=== PATIENT | female | born 1990 | race Caucasian/White ===

== ENCOUNTER 2016-04-24 03:08 | Emergency (ER) | payer MEDICARE ==
--- NOTE | 2016-04-24 07:01 | ER Document Report ---
ED General - General Chief Complaint: Ankle Pain Stated Complaint: FOOT PAIN TRAVEL OUTSIDE OF THE [place] IN LAST 30 DAYS: No - HPI Patient complains to provider of: ankle pain foot pain Notes: Patient states approximately 48 hours ago she had an ankle injury rolling her ankle patient states yesterday 24 hours before coming and patient underwent a pedicure with exfoliation of her feet at the pedicure office. Patient now has swelling of the ankle and erythema of the dorsum of her foot. Denies fevers chills nausea vomiting difficulty in ambulating patient does state some mild pain with tingling. Denies any other history trauma. - Related Data Allergies/Adverse Reactions: acetaminophen Allergy (Verified 04/24/16 03:21) amoxicillin [From Augmentin] Allergy (Verified 04/24/16 03:21) clavulanic acid [From Augmentin] Allergy (Verified 04/24/16 03:21) codeine Allergy (Verified 04/24/16 03:21) ketorolac [From Toradol] Allergy (Verified 04/24/16 03:21) shellfish derived Allergy (Verified 04/24/16 03:21) Past Medical History - Social History Smoking Status: Current Some Day Smoker Chew tobacco use (# tins/day): No Frequency of alcohol use: Rare Drug Abuse: Marijuana Family History: Reviewed & Not Pertinent Patient has suicidal ideation: No Patient has homicidal ideation: No Renal/ Medical History: Denies: Hx Peritoneal Dialysis Past Surgical History: Reports: Hx Breast Surgery, Hx Nose Surgery, Hx Orthopedic Surgery, Hx Tonsillectomy - and adenoinoectomy - Immunizations Hx Diphtheria, Pertussis, Tetanus Vaccination: Yes Review of Systems - Review of Systems Musculoskeletal: Other - Ankle swelling foot pain erythema Physical Exam - Vital signs Vitals: Temp Pulse Resp BP Pulse Ox 97.7 F 90 18 130/60 H 98 04/24/16 03:16 04/24/16 03:16 04/24/16 03:16 04/24/16 03:16 04/24/16 03:16 Interpretation: Normal - General General appearance: Appears well, Alert - HEENT Head: Normocephalic, Atraumatic Eyes: Normal Pupils: PERRL - Respiratory Respiratory status: No respiratory distress Chest status: Nontender Breath sounds: Normal Chest palpation: Normal - Cardiovascular Rhythm: Regular Heart sounds: Normal auscultation Murmur: No - Abdominal Inspection: Normal Distension: No distension Bowel sounds: Normal Tenderness: Nontender Organomegaly: No organomegaly - Back Back: Normal, Nontender - Extremities General upper extremity: Normal inspection, Nontender, Normal color, Normal ROM , Normal temperature General lower extremity: Tender - There is palpation of the dorsum of foot with area of erythema that is warm consistent with cellulitis, Normal color, Normal ROM, Normal temperature, Normal weight bearing. No: Normal inspection, Nontender, Alli's sign - Neurological Neuro grossly intact: Yes Cognition: Normal Orientation: AAOx4 [place] Coma Scale Eye Opening: Spontaneous [place] Coma Scale Verbal: Oriented [place] Coma Scale Motor: Obeys Commands [place] Coma Scale Total: 15 Speech: Normal Motor strength normal: LUE, RUE, LLE, RLE Sensory: Normal - Psychological Associated symptoms: Normal affect, Normal mood - Skin Skin Temperature: Warm Skin Moisture: Dry Skin Color: Normal Course - Re-evaluation Re-evalutation: Patient examinations consistent with an ankle sprain and possibly developing cellulitis from pedicure on the dorsum of her foot. Patient was started on antibiotics. Patient was encouraged to rest her foot ice elevated take Tylenol Motrin for pain control. Patient will be discharged home - Vital Signs Vital signs: Temp Pulse Resp BP Pulse Ox 98.7 F 77 17 119/61 98 04/24/16 07:58 04/24/16 07:58 04/24/16 07:58 04/24/16 07:58 04/24/16 07:58 Discharge - Discharge Clinical Impression: Cellulitis of foot Sprain of ankle Qualifiers: Encounter type: initial encounter Laterality: left Condition: Good Disposition: HOME, SELF-CARE Instructions: Cellulitis ([facility]), Sprained Ankle ([facility]) Additional Instructions: Your examination days more consistent with cellulitis on the top of her foot more likely from your pedicure day prior to arrival. Please take antibiotics as prescribed. If the redness begins to spread up her leg please return to the ER for further evaluation. Take medications as prescribed for pain control. Prescriptions: Clindamycin HCl [Cleocin HCl] 150 mg PO Q6 7 Days Tramadol HCl [Ultram 50 mg Tablet] 50 mg PO ASDIR PRN #20 tablet PRN Reason: Forms: Return to Work
[2016-04-24 07:58] VITALS: BP 119/61
== END 2016-04-24 07:50 | disposition home or self-care (01) ==
LOC: ER 03:08
DX: S93.402A Sprain of unspecified ligament of left ankle, initial encounter (principal); L03.119 Cellulitis of unspecified part of limb; M25.579 Pain in unspecified ankle and joints of unspecified foot; X58.XXXA Exposure to other specified factors, initial encounter
CPT/HCPCS: 99283